=== PATIENT | male | born 1940 | race Caucasian/White ===

== ENCOUNTER 2016-07-14 09:29 | Day surgery (SDC) | payer MEDICARE, OTHER ==
--- NOTE | ~2016-07-14 | OP ---
Record Of Operation [facility] [address] [place] [address] NAME: KATHRYN SINGH : 44 STATUS : REG [facility]#: [id number] AGE: 75 ADM/REG DATE : 07/14/16 MR#: [id number] REPORT SERV DATE: 07/14/16 DICTATED BY: JAIR RAMIRES DATE: 07/14/16 REPORT STATUS : Draft TRANSCRIBED BY: MICHELLE DATE: 07/14/16 DATE OF PROCEDURE: 07/14/2016 PREPROCEDURE DIAGNOSIS: Personal history and family history of colon polyps. Family history of colon cancer. PROCEDURE: Colonoscopy with hot biopsy polypectomy with three sessile polyps measuring 5 mm at the rectosigmoid at 20 cm and six polyps removed from the rectum at 5 cm. DESCRIPTION OF PROCEDURE: The patient was taken to the endoscopy suite, positioned in the left lateral decubitus position. Informed consent was obtained followed by IV sedation delivered by [facility]. Digital rectal exam; normal sphincter tone, no masses. The scope was navigated without difficulty to the ileocecal valve where the appendiceal orifice was identified. Prep was adequate. There was thin liquid stool, which was easily suctioned and more than 85% of the mucosa was visualized. There was no evidence of diverticular disease. All polyps were noted in the rectum and the rectosigmoid. No other polyps were noted in the rest of the colon. The scope was withdrawn in a 12-minute period of time. At the rectosigmoid junction, three sessile polyps measuring 5 mm each were removed at 20 cm with hot biopsy forceps, and in the rectum, there were scattered six polyps measuring between 2 mm and 5 mm in size at 5 cm, which were also removed with hot biopsy polypectomy technique. The scope was retroflexed on itself showing grade 1 internal hemorrhoids, which is a normal finding and then the scope was withdrawn. He tolerated the procedure well. Repeat colonoscopy in five years. JAIDA/MICHELLE Jair Ramires M.D. / [id number] CC: Jair Ramires M.D. Giovanna Bhatt M.D.
[~2016-07-14 09:29] MED LIST: IMBRU140C PO; PRILO PO; ZANTAC150 MG PO
== END 2016-07-14 23:59 | disposition home health service (06) ==
LOC: DMU 09:29
PROVIDERS: Surgery
PROC: 0DBP8ZX Excision of Rectum, Via Natural or Artificial Opening Endoscopic, Diagnostic (ICD-10-PCS; 2016-07-14)
PROC: 0DBN8ZX Excision of Sigmoid Colon, Via Natural or Artificial Opening Endoscopic, Diagnostic (ICD-10-PCS; principal; 2016-07-14 11:00)
DX: Z12.11 Encounter for screening for malignant neoplasm of colon (principal); K64.0 First degree hemorrhoids; K21.9 Gastro-esophageal reflux disease without esophagitis; E11.9 Type 2 diabetes mellitus without complications; Z86.010 Personal history of colon polyps; Z80.0 Family history of malignant neoplasm of digestive organs
CPT/HCPCS: 82962; 88305